=== PATIENT | male | born 1990 | race Caucasian/White ===

== ENCOUNTER → 2023-06-29 | Outpatient (CLI) | payer BC ==
[2023-06-29 17:24] LABS: BASO # 0.03 K/mm3 (0.02-0.10); EOS # 0.19 K/mm3 (0.04-0.40); EOS % 2.3 % (0.0-4.0); HEMATOCRIT 38.5 % (42.0-52.0); HEMOGLOBIN 13.9 g/dL (13.5-18.0); LYMPH# 1.59 K/mm3 (1.50-4.00); MEAN CELL VOLUME 88 fl (78-100); MEAN CORPUSCULAR HEMOGLOBIN 32 pg (27-31); MEAN CORPUSCULAR HGB CONC 36 g/dL (33-37); MEAN PLATELET VOLUME 9.6 fl (7.4-10.4); MONO # 1.06 K/mm3 (0.20-0.80); NEU # 5.26 K/mm3 (1.40-6.50); PLATELET COUNT 218 K/mm3 (130-400); RED BLOOD COUNT 4.39 M/mm3 (4.20-5.60); RED CELL DISTRIBUTION WIDTH 12.3 % (11.5-14.5); WHITE BLOOD COUNT 8.1 K/mm3 (4.8-10.8)
[2023-06-29 17:32] LABS: CALCIUM 8.7 mg/dL (8.3-10.5)
== END ==
LOC: LAB 17:11
PROVIDERS: Family Medicine
DX: R19.7 Diarrhea, unspecified (principal)